=== PATIENT | male | born 1990 | race Caucasian/White ===

== ENCOUNTER → 2019-01-31 | Outpatient (CLI) | payer OTHER ==
--- NOTE | 2019-02-01 10:38 | CT ---
EXAMINATION TYPE: CT foot LT wo con DATE OF EXAM: 01/31/2019 COMPARISON: None HISTORY: Left foot fx CT DLP: 232.5 mGycm Automated exposure control for dose reduction was used. Unenhanced CT of the left foot was performed with bone and soft tissues window settings are reviewed images were also reviewed in the axial adams l and sagittal planes. FINDINGS: I do not see evidence for acute fracture or dislocation. Ankle mortise is intact. Small well-corticat ed bony fragment noted at the tip of the lateral malleolus spell to reflect a remote avulsion fractur e. No acute avulsion fracture seen. No soft tissue swelling noted. Visualized ligamentous and tendino us structures are intact. No osseous lesions seen. No fluid-filled or solid soft tissue mass is noted . Minimal plantar and dorsal calcaneal spur formation. IMPRESSION: NO ACUTE FRACTURE OR DISLOCATION. SMALL CHRONIC APPEARING AVULSION FRACTURE ARISING FROM THE LATERAL MALLEOLUS TIP.
== END ==
LOC: RADCTMAIN 14:39
PROVIDERS: ATTEND Orthopaedic Surgery
DX: S92.322A Displaced fracture of second metatarsal bone, left foot, initial encounter for closed fracture (principal); S82.62XA Displaced fracture of lateral malleolus of left fibula, initial encounter for closed fracture